=== PATIENT | female | born 1965 | race Caucasian/White ===

== ENCOUNTER 2017-06-15 07:50 | Emergency (ER) | payer OTHER ==
[~2017-06-15] VITALS: Ht 152.4 cm; Wt 59.0 kg
[~2017-06-15 07:50] MED LIST: ANUSOL-HC25 M1 RC; BENTYL10 M1 PO; BENTYL20 M1 PO; CHOLESTYRAMINE L4 GM PO; ELIQUIS5 M1 PO; ENTOCORT EC3 M1 PO; FLAGYL250 M1 PO; GABAPENTIN300 M2 PO; MACROBID 100 M100 MG PO; MAG DELAY64 MG PO; METOPROLOL TART25 M1 PO; ONDANSETRON ODT4 M1 PO; PAROXETINE HCL40 M1 PO; POTASSIUM CHLO20 ME4 PO; PREDNISONE10 M2 PO; PYRIDIUM200 M1 PO; REGLAN10 M1 PO; REMERON15 M2 PO; VANCOMYCIN HCL5 G1 PO; VICODIN 5-3001 EACH PO; VITAMIN D31000 UNI2 PO; ZOFRAN ODT4 M1 PO; ZOFRAN ODT4 M1 SL
[2017-06-15 07:56] VITALS: BP 111/76
--- NOTE | 2017-06-15 08:35 | ED NECK/BACK PAIN COMPLAINT ---
History of Present Illness General Chief Complaint: Low Back Pain/Injury Stated Complaint: LBP NUMBNESS DOWN RT LEG Source: patient, old records Exam Limitations: no limitations Vital Signs & Intake/Output Vital Signs & Intake/Output Vital Signs Date Time Temp Pulse Resp B/P B/P Pulse O2 O2 Flow FiO2 Mean Ox Delivery Rate 06/15 0756 97.1 102 20 111/76 99 Room Air Allergies Coded Allergies: NO KNOWN ALLERGIES (01/28/17) prednisone (PALPITATIONS 10/13/15) Reconcile Medications Anusol Hc (Anusol-Hc) 25 MG SUPP.RECT 1 SUP RC BID as needed (Reported) Apixaban (Eliquis) 5 MG TABLET 10 MG PO Q12H pulmonary embolus Apixaban (Eliquis) 5 MG TABLET 1 TAB PO BID pulmonary embolus Baclofen 10 MG TABLET 1 TAB PO TIDPRN PRN muscle spasm/strain Cholecalciferol (Vitamin D3) 1,000 UNIT TABLET 1 TAB PO DAILY supplemet/hyper para (Reported) Cholestyramine/Aspartame (Cholestyramine Light Packet) 4 GM POWD.PACK 1 PAC PO 0800 & 1700 HIGH CHOLESTEROL Reason to Stop at ADM: does not take anymore Dicyclomine Hydrochloride (Bentyl) 10 MG CAPSULE 20 MG PO 4 TIMES/DAY PRN ABDOMINAL PAIN Gabapentin 300 MG CAPSULE 1 CAP PO Q4-6H PRN NERVE PAIN (Reported) Hydrocodone/Acetaminophen (Vicodin 5-300 MG Tablet) 1 EACH TABLET 1-2 TAB PO BID PRN PAIN (Reported) Ibuprofen 600 MG TABLET 1 TAB PO Q6PRN PRN pain with food Magnesium Chloride (Mag Delay) 64 MG TABLET.DR 64 MG PO ONCE low magnesium level Methylprednisolone. (Medrol) 4 MG TAB.DS.PK 0 PO SEE ADMIN CRITERIA disk bulge Metoprolol Tartrate 25 MG TABLET 25 MG PO Q8 high blood pressure Mirtazapine (Remeron) 15 MG TABLET 15 MG PO AT BEDTIME depression Oxycodone HCl/Acetaminophen (Percocet 5-325 MG Tablet) 5 MG-325 MG TABLET 1 TAB PO 4 TIMES/DAY PRN sciatica Paroxetine HCl 40 MG TABLET 1 TAB PO DAILY MENTAL HEALTH (Reported) Phenazopyridine HCl (Pyridium) 200 MG TABLET 1 TAB PO TID urine discomfort ( Reported) Potassium Chloride 20 MEQ TABLET.ER 20 MEQ PO BID low potassium level Vancomycin HCl 5 GM POWDER 125 MG PO Q6 gastrointestinal infection Triage Note: C/O LOW BACK PAIN RADIATING TO RIGHT BUTTOCK AND THIGH SINCE YESTERDAY. ALSO C/O INTERMITTANT NUMBNESS AND TINGLING IN LOWER LEG. PT STATES SHE BROKE HER COCCYX 20 YEARS AGO DURING CHILDBIRTH, HAS HAD INTERMITTANT PAIN SINCE. Triage Nurses Notes Reviewed? yes Onset: Last week Duration: week(s):, constant, continues in ED Timing: recent history Quality/Severity: moderate, severe, radiation, sharpness Location: coccyx Radiation: buttocks, upper legs, lower legs, feet Context: lifting, turning/bending Method of Injury: prior injury, twisted Loss of Consciousness: no loss of consciousness Modifying Factors: movement, rest Associated Symptoms: lower back pain, muscle spasm LMP (ages 10-50): post menopausal : No Patient currently breastfeeds: No HPI: 1 week prior to admission patient complains of right buttocks pain described as sharp constant worse with movement turning bending radiating to her buttocks and posterior thigh anterior barboza and foot. She has a previous history of coccyx fracture during childbirth. She denies fever chills nausea vomiting diarrhea abdominal pain chest pain shortness breath headache dysuria rash bleeding change in motor sensory function change in bowel bladder habit. Past History Travel History Traveled to [place] past 21 day No Medical History Any Pertinent Medical History? see below for history Neurological: NONE EENT: NONE Cardiovascular: SVT Respiratory: NONE Gastrointestinal: colitis, recent colonoscopy showed collagenous colitis Hepatic: NONE Renal: KIDNEY STONES Musculoskeletal: disk herniation Psychiatric: anxiety, depression Endocrine: hyperPARATHYROID, hypercalcemia Blood Disorders: NONE Cancer(s): NONE FERMENTER WINE/Reproductive: NONE History of MRSA: No History of VRE: No History of CDIFF: Yes Tetanus Vaccine: 11/27/11 Surgical History Surgical History: temporary urteral stent placement Psychosocial History Who do you live with Family What is your primary language Moroccan Tobacco Use: Current Daily Use Daily Tobacco Use Amount/Type: =< 4 Cigarettes daily ETOH Use: denies use Family History Family History, If Any: MOTHER FH: dementia FH: HTN (hypertension) Graves' disease SIADH FATHER Ischemic heart disease (IHD) Hx Contributory? No Review of Systems Review of Systems Constitutional: Reports: no symptoms. Eyes: Reports: no symptoms. Ears, Nose, Throat, Mouth: Reports: no symptoms. Respiratory: Reports: no symptoms. Cardiovascular: Reports: no symptoms. Gastrointestinal/Abdominal: Reports: no symptoms. Musculoskeletal: Reports: see HPI, back pain. Skin: Reports: no symptoms. Neurological/Psychological: Reports: see HPI, paresthesia. All Other Systems: Reviewed and Negative Physical Exam Physical Exam General Appearance: well developed/nourished, alert, awake, anxious, mild distress Head: atraumatic, normal appearance Eyes: Bilateral: normal appearance, PERRL, EOMI, normal inspection. Ears, Nose, Throat, Mouth: hearing grossly normal, moist mucous membrane Neck: normal inspection, supple, full range of motion, normal alignment Respiratory: normal breath sounds, chest non-tender, no respiratory distress, quiet respiration, lungs clear Cardiovascular: regular rate/rhythm, normal peripheral pulses, norml femoral pulses equa Peripheral Pulses: 4+ carotid (R), 4+ carotid (L) Gastrointestinal: normal bowel sounds, soft, non-tender, no organomegaly Back: normal inspection, decreased range of motion, muscle spasm, no vertebral tenderness Extremities: non-tender, normal range of motion, straight leg raised (5 degrees pain), no ligament instability Straight Leg Raising: Right: Pain at ____ degrees (5). Left: Pain at ____ degrees (5). Sensory: Medial Le: L4R, L4L. Top of Foot: 2: L5R, L5L. Sole of Foot: 2: SIR, QUITA. Motor: Deficit L4 Right: No Deficit L4 Left: No Deficit L5 Right: No Deficit L5 Left: No Deficit S1 Right: No Deficit S1 Right: No DTR: Deficit L4 Left: No Deficit L4 Right: No Deficit S1 Left: No Deficit S1 Right: No Patellar: 3: L4 Right, L4 Left. Achilles: 3: S1 Right, S1 Left. Neurologic/Psych: no motor/sensory deficits, awake, alert, oriented x 3, normal mood/affect, steel buffer II-XII nml as tested Skin: intact, normal color, warm/dry Core Measures CVA/TIA Diagnosis: No Progress Differential Diagnosis: cauda equina syn, herniated disc, myofascial strain, sciatica Plan of Care: Current Medications Sig/Josefa Start time Last Medication Dose Stop Time Status Admin Cyclobenzaprine HCl 10 MG ONCE ONE 06/15 1015 UNVr (Flexeril 10MG Tab) 06/15 1016 Ibuprofen 600 MG ONCE ONE 06/15 1015 UNVr (Motrin) 06/15 1016 Methylprednisolone 20 MG ONCE ONE 06/15 1015 UNVr (Medrol) 06/15 1016 Diagnostic Imaging: Viewed by Me: CT Scan. Discussed w/RAD: CT Scan. Radiology Impression: Right paracentral disc bulge and mild spinal stenosis at L4-L5. Mild disc bulge at L3-L4 and L5-S1. Lower lumbar spine facet arthritis. Departure Departure Time of Disposition: 958 Disposition: HOME OR SELF CARE Condition: Stable Clinical Impression Primary Impression: Spinal stenosis at L4-L5 level Secondary Impressions: Facet arthropathy, lumbar, Sciatica associated with disorder of lumbar spine Referrals: Dylon PRESTON,Jasson Briggs (PCP/Family) Yin PRESTON,Jordyn Call for orthopedic follow up Tamica PRESTON,Natalia Garcia Call for neurosurgical follow up Departure Forms: Customer Survey General Discharge Information Prescriptions: Current Visit Scripts Methylprednisolone. (Medrol) 0 PO SEE ADMIN CRITERIA #1 PAC Baclofen 1 TAB PO TIDPRN PRN muscle spasm/strain #30 TAB Ibuprofen 1 TAB PO Q6PRN PRN pain #50 TAB with food Oxycodone HCl/Acetaminophen (Percocet 5-325 MG Tablet) 1 TAB PO 4 TIMES/DAY PRN sciatica #20 TAB
--- NOTE | 2017-06-15 09:49 | CT SCAN REPORT ---
EXAMINATION: CT LUMBAR SPINE WITHOUT CONTRAST CLINICAL INFORMATION: Right buttock pain radiating to foot. Numbness. COMPARISON: None TECHNIQUE: Helical noncontrast CT images were obtained through the lumbar spine and 1.25 and 2.5 mm axial reconstructions were reviewed along with sagittal and coronal MPRs. DLP: 344 mGy-cm FINDINGS: Bone alignment is normal. No fracture, dislocation or bone lesion is seen. Paraspinal soft tissues are unremarkable. SPINAL LEVELS: T12-L1: Normal. No disc herniation, protrusion or bulge. L1-L2: Normal. No disc herniation, protrusion or bulge. L2-L3: No disc herniation, protrusion or bulge. There is mild facet arthritis. L3-L4: There is mild diffuse disc bulge. No disc herniation is seen. Spinal canal, lateral recesses and neural foramen are patent. There is mild facet arthritis. L4-L5: There is mild right paracentral disc bulge. No disc herniation is seen. There is mild spinal stenosis and lateral recess narrowing from disc bulge, short pedicles and facet arthritis. L5-S1: There is mild central disc bulge. No disc herniation is seen. Spinal canal, lateral recesses and neural foramen are patent. There is mild facet arthritis. IMPRESSION: Right paracentral disc bulge and mild spinal stenosis at L4-L5. Mild disc bulge at L3-L4 and L5-S1. Lower lumbar spine facet arthritis.
[2017-06-15] MEDS ORDERED: MEDROL4 M2 PO (10:05)
[2017-06-15] MEDS ORDERED: IBUPROFEN600 M1 PO (10:05)
[2017-06-15] MEDS ORDERED: PERCOCET 5-3251 EACH PO (10:05)
[2017-06-15] MEDS ORDERED: BACLOFEN10 M1 PO (10:05)
== END 2017-06-15 10:24 ==
LOC: ERH 07:50
DX: M48.061 Spinal stenosis, lumbar region without neurogenic claudication (principal); M12.9 Arthropathy, unspecified; M54.41 Lumbago with sciatica, right side